=== PATIENT | male | born 1985 | race Caucasian/White ===

== ENCOUNTER 2021-04-21 14:03 | Emergency (ER) | payer OTHER, SELFPAY ==
[2021-04-21 14:11] VITALS: BP 124/53; PULSE 94; RESP 18; TEMP 36.8; O2SAT 100; BMI 22.7
--- NOTE | 2021-04-21 15:52 | ED_ITS ---
HPI - General Adult General Chief complaint: General Medical Stated complaint: Suture removal Time Seen by Provider: 04/21/21 15:52 History of Present Illness HPI narrative: Patient presents for staple removal from his scalp, denies any pain redness or discharge He also complains of some pain in the left lower rear molar with some intermittent gum swelling but no difficulty breathing or swallowing, no swelling under the tongue no fever Related Data Previous Rx's Medication Instructions Recorded clindamycin HCl 300 mg capsule 300 mg PO QID 7 Days #28 cap 04/21/21 Allergies Allergy/AdvReac Type Severity Reaction Status Date / Time amoxicillin [AMOXICILLIN] Allergy Intermediate Rash Verified 04/21/21 14:10 erythromycin base Allergy Intermediate Rash Verified 04/21/21 14:10 [ERYTHROMYCIN BASE] Penicillins [PENICILLINS] Allergy Intermediate Rash Unverified 04/21/21 14:10 FOR[facility]LY [facility] Past Medical History Medical History (Updated 04/21/21 @ 15:56 by SOCORRO Valle) No active medical problems Social History Social History Advance Directives: Yes Advance Directives Information Provided: Yes Advance Directives on File: No Physical Exam Vital Signs: Vital Signs: Last Vital Signs Temp 98.3 F 04/21/21 14:11 Pulse 94 04/21/21 14:11 Resp 18 04/21/21 14:11 BP 124/53 L 04/21/21 14:11 Pulse Ox 100 04/21/21 14:11 Body Mass Index 22.7 Course Course Course Narrative: Jonny are removed from the scalp with no wound dehiscence and there is no sign of redness swelling or infection For the dental infection he is well-appearing and is prescribed clindamycin and given a list of dentists Discharge Plan Discharge Clinical Impression: Encounter for removal of jonny, Dental caries Patient Disposition: Home, Self-Care Additional Instructions: Jonny were removed with no sign of infection As you have a tooth that looks to be infected we gave a prescription for clindamycin Follow with dentist for the tooth Prescriptions: New clindamycin HCl 300 mg capsule 300 mg PO QID 7 Days Qty: 28 RF: 0
== END 2021-04-21 16:08 | disposition home or self-care (01) ==
PROVIDERS: Emergency Provider Emergency Medicine
DX: Z48.02 Encounter for removal of sutures (principal); S01.01XD Laceration without foreign body of scalp, subsequent encounter; X58.XXXD Exposure to other specified factors, subsequent encounter; K02.9 Dental caries, unspecified; K08.89 Other specified disorders of teeth and supporting structures
CPT/HCPCS: 99283